=== PATIENT | male | born 1955 | race Caucasian/White ===

== ENCOUNTER 2017-04-14 10:16 | Observation (INO) | payer OTHER ==
[~2017-04-14] VITALS: Ht 180.3 cm; Wt 96.0 kg
[2017-04-14] VITALS (8 sets, daily range): BP systolic 118–150; BP diastolic 78–86; PULSE 48–76; RESP 14–20; TEMP 97.7–98.2; O2SAT 97–100
[2017-04-14] MEDS ORDERED: SODIUM CHLOR 0.9% 1000 ML INJ 1,000 ML IV SCH (11:32)
[2017-04-14] MEDS ORDERED: ASPI-183 PO (11:37)
[2017-04-14] MEDS ORDERED: SIMV40TA PO (11:37)
[2017-04-14] MEDS ORDERED: OMEP40CA2 PO (11:37)
[2017-04-14] MEDS ORDERED: SODIUM CHLORIDE 0.9% FLUSH 10 ML FLUSH IVF PRN (11:45)
[2017-04-14] MEDS ORDERED: FAMOTIDINE 20 MG/2 ML VIAL IV PUSH ONE (11:45)
[2017-04-14] MEDS ORDERED: PANTOPRAZOLE SODIUM 40 MG VIAL IVP ONE (11:45)
[2017-04-14 12:04] LABS: AUTOMATED NEUTROPHIL # 2.6 TH/MM3 (1.8-7.7); BASOPHIL % 0.5 % (0.0-2.0); EOSINOPHIL # 0.3 TH/MM3 (0-0.4); EOSINOPHIL % 5.4 % (0.0-4.0); HEMATOCRIT 28.1 % (39.0-51.0); HEMOGLOBIN 9.2 GM/DL (13.0-17.0); LYMPH % 34.5 % (9.0-44.0); LYMPHOCYTE # 1.8 TH/MM3 (1.0-4.8); MEAN CELL VOLUME 78.8 FL (80.0-100.0); MEAN CORPUSCULAR HEMOGLOBIN 25.7 PG (27.0-34.0); MEAN CORPUSCULAR HGB CONC 32.6 % (32.0-36.0); MEAN PLATELET VOLUME 8.1 FL (7.0-11.0); MONO % 9.6 % (0.0-8.0); MONOCYTE # 0.5 TH/MM3 (0-0.9); PLATELET COUNT 331 TH/MM3 (150-450); RED BLOOD COUNT 3.57 MIL/MM3 (4.50-5.90); RED CELL DISTRIBUTION WIDTH 15.8 % (11.6-17.2); WHITE BLOOD COUNT 5.2 TH/MM3 (4.0-11.0)
--- NOTE | 2017-04-14 12:19 | PD ---
HPI Chief Complaint: Abnormal Results Time Seen by Provider: 11:05 Travel History International Travel<30 days: No Contact w/Intl Traveler<30days: No Traveled to known affect area: No History of Present Illness HPI 61-year-old male with PMH of GERD, HLD presents to the ED for evaluation of abnormal results. Patient states that he had routine lab work drawn at the [place] a few days ago. He states that he was called today and told that his hemoglobin is low. On presentation he endorses feeling more tired than usual. He attributes this to increased work and home chores. He endorses "a few" episodes of "dark" stools in the past few weeks, none today. Denies emmy blood. He denies headache, dizziness, palpitations, chest pain, shortness of breath, dyspnea on exertion, abdominal pain, nausea, vomiting, weakness of the extremities. Endorses familial history of colon cancer in his younger brother, unsure of the age of diagnosis. He endorses previous screening colonoscopy, unsure of the year. Denies history of iron deficiency anemia. Denies history of heavy NSAID use. States that he "hasn't been eating right lately." He is amenable to blood product administration should this be required. PFSH Past Medical History High Cholesterol: Yes Diminished Hearing: No GERD: Yes Respiratory: Yes (BRONCHITIS) Past Surgical History Abdominal Surgery: Yes (LEFT INGUINAL HERNIA REPAIR) Other Surgery: Yes (RIGHT KNEE RECONSTRUCTIVE SX X 3, X 1 LEFT) Social History Alcohol Use: Yes (DAILY-LIQUOR) Tobacco Use: Yes (4-5 CIGS PER DAY) Substance Use: No Allergies-Medications (Allergen,Severity, Reaction): Coded Allergies: No Known Allergies (Unverified , 04/14/17) Reported Meds & Prescriptions Reported Meds & Active Scripts Active Reported Aspirin 325 Mg Tab 325 Mg PO DAILY Simvastatin 40 Mg Tab 40 Mg PO DAILY Omeprazole 40 Mg Cap 40 Mg PO DAILY Review of Systems Except as stated in HPI: all other systems reviewed are Neg Physical Exam Narrative GENERAL: Well-nourished, well-developed white male in no acute distress. SKIN: Focused skin assessment pale, warm/dry. HEAD: Normocephalic. EYES: No scleral icterus. No injection or drainage. NECK: Supple, trachea midline. No JVD or lymphadenopathy. CARDIOVASCULAR: Regular rate and rhythm without murmurs, gallops, or rubs. RESPIRATORY: Breath sounds clear and equal bilaterally. No accessory muscle use. GASTROINTESTINAL: Abdomen soft, non-tender, nondistended. Active bowel sounds. RECTAL EXAM: No masses or tenderness, stool is brown. Guaiac positive. MUSCULOSKELETAL: No cyanosis, or edema. BACK: Nontender without obvious deformity. No CVA tenderness. Data Data Last Documented VS Vital Signs Date Time Temp Pulse Resp B/P (MAP) Pulse Ox O2 Delivery O2 Flow Rate FiO2 04/14/17 13:00 58 20 128/84 (99) 97 Room Air 04/14/17 10:17 98.2 Orders Orders Complete Blood Count With Diff (04/14/17 11:32) Comprehensive Metabolic Panel (04/14/17 11:32) Prothrombin Time / Inr (Pt) (04/14/17 11:32) Act Partial Throm Time (Ptt) (04/14/17 11:32) Urinalysis - C+S If Indicated (04/14/17 11:32) Type And Screen (04/14/17 11:32) Ecg Monitoring (04/14/17 11:32) Iv Access Insert/Monitor (04/14/17 11:32) Oximetry (04/14/17 11:32) Pantoprazole Inj (Protonix Inj) (04/14/17 11:45) Sodium Chlor 0.9% 1000 Ml Inj (Ns 1000 M (04/14/17 11:32) Sodium Chloride 0.9% Flush (Ns Flush) (04/14/17 11:45) Famotidine Inj (Pepcid Inj) (04/14/17 11:45) Consult Gastroenterology (04/14/17 ) Admit Order (Ed Use Only) (04/14/17 14:30) Labs Laboratory Tests Test 04/14/17 11:30 White Blood Count 5.2 TH/MM3 Red Blood Count 3.57 MIL/MM3 Hemoglobin 9.2 GM/DL Hematocrit 28.1 % Mean Corpuscular Volume 78.8 FL Mean Corpuscular Hemoglobin 25.7 PG Mean Corpuscular Hemoglobin Concent 32.6 % Red Cell Distribution Width 15.8 % Platelet Count 331 TH/MM3 Mean Platelet Volume 8.1 FL Neutrophils (%) (Auto) 50.0 % Lymphocytes (%) (Auto) 34.5 % Monocytes (%) (Auto) 9.6 % Eosinophils (%) (Auto) 5.4 % Basophils (%) (Auto) 0.5 % Neutrophils # (Auto) 2.6 TH/MM3 Lymphocytes # (Auto) 1.8 TH/MM3 Monocytes # (Auto) 0.5 TH/MM3 Eosinophils # (Auto) 0.3 TH/MM3 Basophils # (Auto) 0.0 TH/MM3 CBC Comment DIFF FINAL Differential Comment Prothrombin Time 10.6 SEC Prothromb Time International Ratio 1.0 RATIO Activated Partial Thromboplast Time 23.5 SEC Blood Urea Nitrogen 17 MG/DL Creatinine 1.34 MG/DL Random Glucose 86 MG/DL Total Protein 6.4 GM/DL Albumin 3.2 GM/DL Calcium Level 7.7 MG/DL Alkaline Phosphatase 62 U/L Aspartate Amino Transf (AST/SGOT) 32 U/L Alanine Aminotransferase (ALT/SGPT) 24 U/L Total Bilirubin 0.8 MG/DL Sodium Level 142 MEQ/L Potassium Level 4.5 MEQ/L Chloride Level 112 MEQ/L Carbon Dioxide Level 25.4 MEQ/L Anion Gap 5 MEQ/L Estimat Glomerular Filtration Rate 54 ML/MIN [facility] Medical Decision Making Medical Screen Exam Complete: Yes Emergency Medical Condition: Yes Differential Diagnosis GI bleed versus iron deficiency anemia versus electrolyte abnormality versus other Narrative Course 61-year-old male with PMH of GERD, HLD presents to the ED for evaluation of reportedly low hemoglobin from routine lab work at the [place] to a few days ago. On presentation he endorses feeling more tired than usual. He endorses "a few" episodes of "dark" stools in the past few weeks, none today. Denies emmy blood. Endorses familial history of colon cancer in his younger brother, unsure of the age of diagnosis. He endorses previous screening colonoscopy, unsure of the year. Denies history of iron deficiency anemia. States that he "hasn't been eating right lately." Vitals reviewed. Physical exam reveals a pale white male in no acute distress. Chest CTAB. Abdomen soft and nontender. Guaiac positive on rectal exam. IV established. Patient was administered IV famotidine, Protonix and 1 L normal saline. CBC: WBC 5.2. Hemoglobin 9.2. Hematocrit 28.1. MCV 78.8. MCH 25.7. Coags: INR 1.0. CMP: BUN 17 creatinine 1.34. Calcium 7.7. I discussed the results of the workup with the patient as well as recommended admission for GI evaluation. Patient was initially resistant to this plan. He is concerned about insurance costs secondary [facility] Ultimately he agreed to admission. GI consult was placed. I spoke with Dr. Cardenas who agrees to accept the patient to the medicine service. Yumi Del Toro Apr 14, 2017 12:19
[2017-04-14 12:23] LABS: PROTHROMBIN TIME - PATIENT 10.6 SEC (9.8-11.6)
[2017-04-14 13:36] LABS: ALBUMIN 3.2 GM/DL (3.4-5.0); ALKALINE PHOSPHATASE 62 U/L (45-117); ALT (GPT) 24 U/L (12-78); AST (GOT) 32 U/L (15-37); BICARBONATE 25.4 MEQ/L (21.0-32.0); BLOOD UREA NITROGEN 17 MG/DL (7-18); CALCIUM 7.7 MG/DL (8.5-10.1); CHLORIDE 112 MEQ/L (98-107); CREATININE 1.34 MG/DL (0.60-1.30); GLOMERULAR FILTRATION RATE 54 ML/MIN (>89); GLUCOSE,RANDOM 86 MG/DL (74-106); SODIUM (NA) 142 MEQ/L (136-145); TOTAL BILIRUBIN ADULT 0.8 MG/DL (0.2-1.0); TOTAL PROTEIN 6.4 GM/DL (6.4-8.2)
--- NOTE | 2017-04-14 15:29 | HHI.HP ---
[facility] Service [facility] Primary Care Physician [facility] Admission Diagnosis GI bleed Diagnoses: Chief Complaint: Sent for abnormal lab results. Travel History International Travel<30 Days: No Contact w/Intl Traveler <30 Da: No Traveled to Known Affected Are: No History of Present Illness 61-year-old male with a history of GERD, hyperlipidemia sent to the emergency room by the [place] for low hemoglobin. Evaluation in the emergency room revealed a hemoglobin of 9.2 We do not have the [place] records. He is Hemoccult positive in the emergency room. In terms of symptoms, he reports that he has been feeling a little more tired for the past few weeks which she attributed to increased stress and renovation work at his home. 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 He admits that he eats poorly on the road. He admits to having a couple episodes of melena couple of weeks ago. He does drink about 2 ounces of liquor every night with melatonin to help him sleep. He denies abdominal pain or emmy blood in the stool. He takes an aspirin a day and denies any other NSAID use. States his last colonoscopy was over 5 years ago. He does have a brother was diagnosed with colon cancer around 55 years old. Currently denies heart palpitations, shortness of breath, or headache. Review of Systems Constitutional: COMPLAINS OF: Fatigue, DENIES: Fever, Chills Gastrointestinal: COMPLAINS OF: Black stools Except as stated in HPI: all other systems reviewed are Neg Past Family Social History Past Medical History GERD Hyperlipidemia Past Surgical History knee reconstructive surgery Inguinal hernia repair Reported Medications Reported Meds & Active Scripts Active Reported Aspirin 325 Mg Tab 325 Mg PO DAILY Simvastatin 40 Mg Tab 40 Mg PO DAILY Omeprazole 40 Mg Cap 40 Mg PO DAILY Allergies: Coded Allergies: No Known Allergies (Unverified , 04/14/17) Family History Brother diagnosed with colon cancer at 55 years old Father of [place] in his late 60s Social History Patient started smoking 4-5 cigarettes a day last month Admits to drinking 2 ounces of liquor every night. Denies illicit drug use. Physical Exam Vital Signs Vital Signs Date Time Temp Pulse Resp B/P (MAP) Pulse Ox O2 Delivery O2 Flow Rate FiO2 04/14/17 13:00 58 20 128/84 (99) 97 Room Air 04/14/17 12:00 58 14 132/85 (101) 99 Room Air 04/14/17 11:37 61 14 118/78 (91) 100 Room Air 04/14/17 11:35 100 Room Air 04/14/17 10:17 98.2 76 14 135/82 (99) 98 Physical Exam GENERAL: This is a well-nourished, well-developed patient, in no apparent distress. SKIN: No rashes, ecchymoses or lesions. Cool and dry. HEAD: Atraumatic. Normocephalic. No temporal or scalp tenderness. EYES: Pupils equal round and reactive. Extraocular motions intact. No scleral icterus. No injection or drainage. ENT: Nose without bleeding, purulent drainage or septal hematoma. Throat without erythema, tonsillar hypertrophy or exudate. Uvula midline. Airway patent. NECK: Trachea midline. No JVD or lymphadenopathy. Supple, nontender, no meningeal signs. CARDIOVASCULAR: Regular rate and rhythm without murmurs, gallops, or rubs. RESPIRATORY: Clear to auscultation. Breath sounds equal bilaterally. No wheezes , rales, or rhonchi. GASTROINTESTINAL: Abdomen soft, non-tender, nondistended. No hepato-splenomegaly , or palpable masses. No guarding. MUSCULOSKELETAL: Extremities without clubbing, cyanosis, or edema. No joint tenderness, effusion, or edema noted. No calf tenderness. Negative Homans sign bilaterally. NEUROLOGICAL: Awake and alert. Cranial nerves II through XII intact. Motor and sensory grossly within normal limits. Five out of 5 muscle strength in all muscle groups. Normal speech. Laboratory Laboratory Tests Test 04/14/17 11:30 White Blood Count 5.2 Red Blood Count 3.57 Hemoglobin 9.2 Hematocrit 28.1 Mean Corpuscular Volume 78.8 Mean Corpuscular Hemoglobin 25.7 Mean Corpuscular Hemoglobin Concent 32.6 Red Cell Distribution Width 15.8 Platelet Count 331 Mean Platelet Volume 8.1 Neutrophils (%) (Auto) 50.0 Lymphocytes (%) (Auto) 34.5 Monocytes (%) (Auto) 9.6 Eosinophils (%) (Auto) 5.4 Basophils (%) (Auto) 0.5 Neutrophils # (Auto) 2.6 Lymphocytes # (Auto) 1.8 Monocytes # (Auto) 0.5 Eosinophils # (Auto) 0.3 Basophils # (Auto) 0.0 CBC Comment DIFF FINAL Differential Comment Prothrombin Time 10.6 Prothromb Time International Ratio 1.0 Activated Partial Thromboplast Time 23.5 Blood Urea Nitrogen 17 Creatinine 1.34 Random Glucose 86 Total Protein 6.4 Albumin 3.2 Calcium Level 7.7 Alkaline Phosphatase 62 Aspartate Amino Transf (AST/SGOT) 32 Alanine Aminotransferase (ALT/SGPT) 24 Total Bilirubin 0.8 Sodium Level 142 Potassium Level 4.5 Chloride Level 112 Carbon Dioxide Level 25.4 Anion Gap 5 Estimat Glomerular Filtration Rate 54 Result Diagram: 04/14/17 1130 04/14/17 1130 Caprini VTE Risk Assessment Caprini VTE Risk Assessment: No/Low Risk (score <= 1) Caprini Risk Assessment Model Point Value = 1 Point Value = 2 Point Value = 3 Point Value = 5 Age 41-60 Minor surgery BMI > 25 kg/m2 Swollen legs Varicose veins or History of unexplained or recurrent spontaneous Oral contraceptives or hormone replacement Sepsis (< 1 month) Serious lung disease, including pneumonia (< 1 month) Abnormal pulmonary function Acute myocardial infarction Congestive heart failure (< 1 month) History of inflammatory bowel disease Medical patient at bed rest Age 61-74 Arthroscopic surgery Major open surgery (> 45 min) Laparoscopic surgery (> 45 min) Malignancy Confined to bed (> 72 hours) Immobilizing plaster cast Central venous access Age >= 75 History of VTE Family history of VTE Factor V Leiden Prothrombin [id number] Lupus anticoagulant Anticardiolipin antibodies Elevated serum homocysteine Heparin-induced thrombocytopenia Other congenital or acquired thrombophilia Stroke (< 1 month) Elective arthroplasty Hip, pelvis, or leg fracture Acute spinal cord injury (< 1 month) Prophylaxis Regimen Total Risk Factor Score Risk Level Prophylaxis Regimen 0-1 Low Early ambulation 2 Moderate Order ONE of the following: *Sequential Compression Device (SCD) *Heparin 5000 units SQ BID 3-4 Higher Order ONE of the following medications: *Heparin 5000 units SQ TID *Enoxaparin/Lovenox 40 mg SQ daily (WT < 150 kg, CrCl > 30 mL/min) *Enoxaparin/Lovenox 30 mg SQ daily (WT < 150 kg, CrCl > 10-29 mL/min) *Enoxaparin/Lovenox 30 mg SQ BID (WT < 150 kg, CrCl > 30 mL/min) AND/OR *Sequential Compression Device (SCD) 5 or more Highest Order ONE of the following medications: *Heparin 5000 units SQ TID (Preferred with Epidurals) *Enoxaparin/Lovenox 40 mg SQ daily (WT < 150 kg, CrCl > 30 mL/min) *Enoxaparin/Lovenox 30 mg SQ daily (WT < 150 kg, CrCl > 10-29 mL/min) *Enoxaparin/Lovenox 30 mg SQ BID (WT < 150 kg, CrCl > 30 mL/min) AND *Sequential Compression Device (SCD) Assessment and Plan Problem List: (1) GI bleeding ICD Code: K92.2 - Gastrointestinal hemorrhage, unspecified Plan: Last colonoscopy over 5 years ago. He has a brother with history of colon cancer in his 50s. He does drink alcohol which put him at risk for peptic ulcer disease Discussed with GI. 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 Recheck H&H later this afternoon and in the morning. Transfuse as needed. (3) GERD (gastroesophageal reflux disease) ICD Code: K21.9 - Gastro-esophageal reflux disease without esophagitis Plan: Continue Protonix as above (4) Hyperlipidemia ICD Code: E78.5 - Hyperlipidemia, unspecified Plan: Continue statin Discussed Condition With ER provider, RN, Adele Turner MD Apr 14, 2017 15:29
[2017-04-14] MEDS ORDERED: BISACODYL 10 MG SUPP RECTAL PRN (15:30)
[2017-04-14] MEDS ORDERED: NALOXONE HCL 0.4 MG/ML AMP IV PUSH PRN (15:30)
[2017-04-14] MEDS ORDERED: SODIUM CHLORIDE 0.9% FLUSH 10 ML FLUSH IV FLUSH PRN (15:30)
[2017-04-14] MEDS ORDERED: ONDANSETRON HCL 4 MG/2 ML VIAL IVP PRN (15:30)
[2017-04-14] MEDS ORDERED: LACTULOSE SYRUP 20 GM/30 ML CUP PO PRN (15:30)
[2017-04-14] MEDS ORDERED: MAGNESIUM HYDROXIDE SUSP 30 ML CUP PO PRN (15:30)
[2017-04-14] MEDS ORDERED: ACETAMINOPHEN 325 MG TAB PO PRN (15:30)
[2017-04-14] MEDS ORDERED: SENNOSIDES 8.6 MG TAB PO PRN (15:30)
--- NOTE | 2017-04-14 15:49 | PD.CONS ---
HPI History of Present Illness This is a 61 year old male who presented to the ER for abnormal labwork. [facility] advised him to come for low hgb. HE admits some fatigue in the last few days but attributed it to his long work hours. He noticed in the last few weeks he has had some "dark" stools. Denies emmy blood in stool, n/v, abd pain , weight loss. Last colonoscopy at [place] 5-10 y ago, no abnormal findings per pt. HE thinks he has had an EGD for acid reflux maybe 20 y. TAkes ASA every day and in the last month has been taking Aleve daily for knee pain. He drinks 2 shots daily. (Marisabel Munoz) PFSH Past Medical History acid reflux HLD Past Surgical History knee surgeries (Marisabel Munoz) Coded Allergies: No Known Allergies (Unverified , 04/14/17) Family History colon ca - brother [place] father Social History 2 shots etoh daily started smoking 4 - 5 cigarettes daily, just started this February denies illicit drug use (Marisabel Munoz) Review of Systems Constitutional: DENIES: Fever, Weight loss Endocrine: DENIES: Polydipsia Eyes: DENIES: Blurred vision Ears, nose, mouth, throat: DENIES: Hearing loss Respiratory: DENIES: Cough Cardiovascular: DENIES: Chest pain Gastrointestinal: COMPLAINS OF: Black stools, DENIES: Abdominal pain, Bloody stools, Diarrhea, Nausea, Vomiting, Hematemesis Genitourinary: DENIES: Hematuria Musculoskeletal: COMPLAINS OF: Joint pain, DENIES: Muscle aches Integumentary: DENIES: Abnormal pigmentation Hematologic/lymphatic: DENIES: Bruising Immunologic/allergic: DENIES: Eczema Neurologic: DENIES: Abnormal gait Psychiatric: DENIES: Confusion (Marisabel Munoz) GI Exam Vitals I&O Vital Signs Date Time Temp Pulse Resp B/P (MAP) Pulse Ox O2 Delivery O2 Flow Rate FiO2 04/14/17 13:00 58 20 128/84 (99) 97 Room Air 04/14/17 12:00 58 14 132/85 (101) 99 Room Air 04/14/17 11:37 61 14 118/78 (91) 100 Room Air 04/14/17 11:35 100 Room Air 04/14/17 10:17 98.2 76 14 135/82 (99) 98 I/O 04/13/17 04/13/17 04/13/17 04/14/17 04/14/17 04/14/17 07:00 15:00 23:00 07:00 15:00 23:00 Intake Total 1000 ml Balance 1000 ml Intake IV Total 1000 ml Laboratory Test 04/14/17 11:30 White Blood Count 5.2 TH/MM3 Red Blood Count 3.57 MIL/MM3 Hemoglobin 9.2 GM/DL Hematocrit 28.1 % Mean Corpuscular Volume 78.8 FL Mean Corpuscular Hemoglobin 25.7 PG Mean Corpuscular Hemoglobin Concent 32.6 % Red Cell Distribution Width 15.8 % Platelet Count 331 TH/MM3 Mean Platelet Volume 8.1 FL Neutrophils (%) (Auto) 50.0 % Lymphocytes (%) (Auto) 34.5 % Monocytes (%) (Auto) 9.6 % Eosinophils (%) (Auto) 5.4 % Basophils (%) (Auto) 0.5 % Neutrophils # (Auto) 2.6 TH/MM3 Lymphocytes # (Auto) 1.8 TH/MM3 Monocytes # (Auto) 0.5 TH/MM3 Eosinophils # (Auto) 0.3 TH/MM3 Basophils # (Auto) 0.0 TH/MM3 CBC Comment DIFF FINAL Differential Comment Prothrombin Time 10.6 SEC Prothromb Time International Ratio 1.0 RATIO Activated Partial Thromboplast Time 23.5 SEC Blood Urea Nitrogen 17 MG/DL Creatinine 1.34 MG/DL Random Glucose 86 MG/DL Total Protein 6.4 GM/DL Albumin 3.2 GM/DL Calcium Level 7.7 MG/DL Alkaline Phosphatase 62 U/L Aspartate Amino Transf (AST/SGOT) 32 U/L Alanine Aminotransferase (ALT/SGPT) 24 U/L Total Bilirubin 0.8 MG/DL Sodium Level 142 MEQ/L Potassium Level 4.5 MEQ/L Chloride Level 112 MEQ/L Carbon Dioxide Level 25.4 MEQ/L Anion Gap 5 MEQ/L Estimat Glomerular Filtration Rate 54 ML/MIN Physical Examination HEENT: PERRL; normocephalic; atraumatic; no jaundice. CHEST: CTA CARDIAC: RRR ABDOMEN: Soft, nondistended, nontender; no hepatosplenomegaly; bowel sounds are present in all four quadrants. EXTREMITIES: No clubbing, cyanosis, or edema. SKIN: Normal; no rash; no jaundice. APPLICATION PACKAGER: No focal deficits; alert and oriented times three. (Marisabel Munoz) Assessment and Plan Plan ASSESSMENT - anemia, questionable melena - hgb 9.2 microcytic. has noticed dark stools in past few weeks. no other GI sx. no emmy bleeding. last colonsocopy 5-10 y ago at [place], no abnormal findings. last EGD 20y ago. PLAN - EGD and colonoscopy - clears - NPO after midnight - obtain consent - golytely - monitor HH - further recs to follow pt seen by myself and Dr Poole and this note is on his behalf (Marisabel Munoz) Physician Comments Seen and examined with SHOBHA, no active bleeding but progressive decline in H/H. +ve Nsaids, and ETOH. Egd/colonoscopy planned for tomorrow. Discussed with Dr. Spivey. Thank you (Silvano Mayes MD) Marisabel Munoz Apr 14, 2017 15:49 Silvano Mayes MD Apr 14, 2017 16:19
[2017-04-14] MEDS ORDERED: PEG (High)/E-LYTE SOLN 4000 ML BTL PO ONE (16:00)
[2017-04-14] MEDS: SODIUM CHLOR 0.45% 1000 ML INJ 1,000 ML IV SCH (18:11)
[2017-04-14] MEDS: SODIUM CHLORIDE 0.9% FLUSH 10 ML FLUSH IV FLUSH SCH (19:52)
[2017-04-14 20:12] LABS: HEMATOCRIT 28.7 % (39.0-51.0); HEMOGLOBIN 9.3 GM/DL (13.0-17.0)
[2017-04-15 00:23] VITALS: BP 127/81; PULSE 63; RESP 16; TEMP 98; O2SAT 98
[2017-04-15 03:59] VITALS: BP 124/78; PULSE 65; RESP 14; TEMP 96.8; O2SAT 97
[2017-04-15] MEDS ORDERED: CHLORHEXIDINE GLUCONATE 2 % 1 PACK (2 CLOTHS) TOPICAL PRN (06:15)
[2017-04-15] MEDS ORDERED: METOPROLOL TARTRATE 25 MG TAB PO PRN (06:15)
[2017-04-15] MEDS ORDERED: SODIUM CHLORID 0.9% 500 ML IV PRN (06:15)
[2017-04-15] MEDS ORDERED: LACTATED RINGER'S 1000 ML IV PRN (06:15)
[2017-04-15] MEDS ORDERED: POVIDONE IODINE 5% (ANTISEPSIS KIT) 4 APPLICATIONS EACH NARE PRN (06:15)
[2017-04-15] MEDS ORDERED: INSULIN HUMAN REGULAR 1,000 UNITS/10 ML VIAL SQ PRN (06:15)
[2017-04-15 07:11] LABS: AUTOMATED NEUTROPHIL # 2.2 TH/MM3 (1.8-7.7); BASOPHIL % 0.6 % (0.0-2.0); EOSINOPHIL # 0.3 TH/MM3 (0-0.4); HEMATOCRIT 28.3 % (39.0-51.0); HEMOGLOBIN 9.2 GM/DL (13.0-17.0); LYMPH % 41.2 % (9.0-44.0); LYMPHOCYTE # 2.1 TH/MM3 (1.0-4.8); MEAN CELL VOLUME 77.1 FL (80.0-100.0); MEAN CORPUSCULAR HEMOGLOBIN 25.1 PG (27.0-34.0); MEAN CORPUSCULAR HGB CONC 32.6 % (32.0-36.0); MEAN PLATELET VOLUME 7.9 FL (7.0-11.0); MONO % 10.1 % (0.0-8.0); MONOCYTE # 0.5 TH/MM3 (0-0.9); NEUT % 43.1 % (16.0-70.0); PLATELET COUNT 301 TH/MM3 (150-450); RED BLOOD COUNT 3.67 MIL/MM3 (4.50-5.90); RED CELL DISTRIBUTION WIDTH 15.9 % (11.6-17.2); WHITE BLOOD COUNT 5.1 TH/MM3 (4.0-11.0)
[2017-04-15 07:25] VITALS: BP 112/73; PULSE 57; RESP 18; TEMP 98; O2SAT 93
[2017-04-15] MEDS: SODIUM CHLORIDE 0.9% FLUSH 10 ML FLUSH IV FLUSH SCH (08:03)
[2017-04-15] MEDS: SODIUM CHLOR 0.45% 1000 ML INJ 1,000 ML IV SCH (08:04)
--- NOTE | 2017-04-15 08:28 | HHI.PR ---
Subjective Remarks Follow-up GI bleed. The patient has no complaints at this time. He is going for EGD/colonoscopy now. Denies chest pain, dyspnea, lightheadedness, dizziness. He denies any active bleeding. Objective Vitals Vital Signs Date Time Temp Pulse Resp B/P (MAP) Pulse Ox O2 Delivery O2 Flow Rate FiO2 04/15/17 07:25 98.0 57 18 112/73 (86) 93 04/15/17 03:59 96.8 65 14 124/78 (93) 97 04/15/17 00:23 98.0 63 16 127/81 (96) 98 04/14/17 19:13 98.0 48 16 150/85 (106) 98 04/14/17 16:32 97.7 54 18 119/78 (92) 100 04/14/17 16:18 04/14/17 14:00 58 18 129/86 (100) 100 Room Air 04/14/17 13:00 58 20 128/84 (99) 97 Room Air 04/14/17 12:00 58 14 132/85 (101) 99 Room Air 04/14/17 11:37 61 14 118/78 (91) 100 Room Air 04/14/17 11:35 100 Room Air 04/14/17 10:17 98.2 76 14 135/82 (99) 98 I/O 04/14/17 04/14/17 04/14/17 04/15/17 04/15/17 04/15/17 07:00 15:00 23:00 07:00 15:00 23:00 Intake Total 1000 ml 4000 ml Balance 1000 ml 4000 ml Intake Oral 4000 ml IV Total 1000 ml Result Diagram: 04/15/17 0600 04/14/17 1130 Objective Remarks General: No acute distress. Ambulating in his room. Heart: Regular rate and rhythm. No murmur. Lungs: Clear to auscultation bilaterally. No wheezes, rales, or rhonchi. Breathing is nonlabored. Abdomen: Soft, nontender, nondistended. Extremities: No lower extremity edema. Psych: Alert and oriented. 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 GI bleed: Appreciate gastroenterology recommendations. Scheduled for EGD/ colonoscopy this morning. H&H remaining stable. Continue PPI. 2. Anemia secondary to acute blood loss: Monitor H&H. Hemoglobin remained stable overnight. Transfuse if necessary. 3. GERD: Continue Protonix. 4. Hyperlipidemia: Continue statin. 5. Tobacco abuse, alcohol abuse: Patient has been counseled. 6. DVT prophylaxis: Avoid chemical prophylaxis secondary to GI bleed. Ambulation. Discharge Planning Possible discharge home later today if cleared by GI. Augie Esparza MD Apr 15, 2017 08:28
[2017-04-15] MEDS ORDERED: PANTOPRAZOLE SOD 40 MG DELAYED RELEASE TAB PO SCH (09:00)
[2017-04-15] MEDS ORDERED: PRAVASTATIN SOD 80 MG TAB PO SCH (09:00)
--- NOTE | 2017-04-15 09:36 | GIPROC ---
[facility] [address] [facility]. [facility], [address] EGD PROCEDURE REPORT EXAM DATE: 04/15/2017 PATIENT NAME: Gama Capellan MR #: [id number] BIRTHDATE: 1955 ATTENDING: Silvano Mayes MD ORDER #: [id number] STONEWORKING SANDER: Tatianna Zimmerman and Jason Gonzalez STATUS: inpatient INDICATIONS: The patient is a 61 yr old male here for an EGD due to iron deficiency anemia PROCEDURE PERFORMED: EGD w/ biopsy MEDICATIONS: None and Per Anesthesia. TOPICAL ANESTHETIC: CONSENT: The patient understands the risks and benefits of the procedure and understands that these risks include, but are not limited to: sedation, allergic reaction, infection, perforation and/or bleeding. Alternative means of evaluation and treatment include, among others: physical exam, x-rays, and/or surgical intervention. The patient elects to proceed with this endoscopic procedure. medical equipment was checked for proper function. Hand hygiene and appropriate measures for infection prevention was taken. After the risks, benefits and alternatives of the procedure were thoroughly explained, Informed consent was verified, confirmed and timeout was successfully executed by the treatment team. The patient was anesthetized with topical anesthesia and the [id number] (Pedi C) endoscope was introduced through the mouth and advanced to the second portion of the duodenum. Retroflexed views revealed a hiatal hernia The gastroscope was then slowly withdrawn and removed. ESOPHAGUS: There was LA Class B esophagitis noted. A biopsy was performed using cold forceps. Sample sent for histology. STOMACH: There was erythematous moderate gastritis in the gastric antrum. A biopsy was performed using cold forceps. Sample sent for histology. DUODENUM: The duodenal mucosa appeared normal in the bulb and second portion of the duodenum. ADVERSE EVENTS: There were no complications. IMPRESSIONS: 1. There was LA Class B esophagitis noted; biopsy was performed 2. There was erythematous gastritis in the gastric antrum; biopsy was performed 3. Normal duodenal mucosa in the bulb and second portion of the duodenum 4. Retroflexed views revealed a hiatal hernia RECOMMENDATIONS: 1. Await biopsy results. Biopsy results will not be ready for 7-10 days. If you don't hear from us in two weeks, call our office for biopsy results. 2. Anti-reflux regimen 3. Continue PPI PATIENT CONDITION: stable DISPOSITION: Inpatient REPEAT EXAM: Return 1 year EGD pending biopsy results Silvano Mayes MD eSigned: Silvano Mayes MD 04/15/2017 9:36 AM cc: PATIENT NAME: Gama Capellan MR#: [id number]
--- NOTE | 2017-04-15 09:41 | GIPROC ---
[facility] [address] [facility]. [facility], [address] COLONOSCOPY PROCEDURE REPORT EXAM DATE: 04/15/2017 PATIENT NAME: Gama Capellan MR #: [id number] BIRTHDATE: 1955 ENDOSCOPIST: Silvano Mayes MD ORDER #: [id number] PIGMENT WEIGHER: Tatianna Zimmerman and Jason Gonzalez STATUS: inpatient INDICATIONS: The patient is a 61 yr old male here for a colonoscopy due to iron deficiency anemia PROCEDURE PERFORMED: Colonoscopy with biopsy MEDICATIONS: None and Per Anesthesia. PREP QUALITY: The [place] Bowel Prep Score was Right colon 3, Mid colon 3, and Left colon 2. Total = 8. PREP TYPE:GoLytely ESTIMATED BLOOD LOSS: None CONSENT: The patient understands the risks and benefits of the procedure and understands that these risks include, but are not limited to: sedation, allergic reaction, infection, perforation and/or bleeding. Alternative means of evaluation and treatment include, among others: physical exam, x-rays, and/or surgical intervention. The patient elects to proceed with this endoscopic procedure. medical equipment was checked for proper function. Hand hygiene and appropriate measures for infection prevention was taken. After the risks, benefits and alternatives of the procedure were thoroughly explained, Informed consent was verified, confirmed and timeout was successfully executed by the treatment team. A digital exam revealed internal hemorrhoids The Pentax EC-[id number] endoscope was introduced through the anus and advanced to the cecum, which was identified by both the appendix and ileocecal valve. The instrument was then slowly withdrawn as the colon was fully examined. COLON FINDINGS: Moderate diverticulosis was noted in the sigmoid colon. No bleeding was noted from the diverticulosis. A polypoid shaped sessile polyp ranging between 3-5mm in size was found in the sigmoid colon. A biopsy was performed using cold forceps. Retroflexed views revealed internal hemorrhoids and Retroflexed views revealed medium internal hemorrhoids The scope was then completely withdrawn from the patient and the procedure terminated. PROCEDURE WITHDRAWAL TIME:6minutes ADVERSE EVENTS: There were no complications. IMPRESSIONS: 1. Moderate diverticulosis was noted in the sigmoid colon 2. A sessile polyp ranging between 3-5mm in size was found in the sigmoid colon; biopsy was performed using cold forceps 3. Retroflexed views revealed internal hemorrhoids 4. Retroflexed views revealed medium internal hemorrhoids 5. Revealed internal hemorrhoids RECOMMENDATIONS: 1. Await biopsy results. Biopsy results will not be ready for 7-10 days. If you don't hear from us in two weeks, call our office for results. 2. Benefiber 2 tsp daily 3. Continue surveillance 4. Yearly hemoccult 5. High fiber diet 6. No seeds, nuts and popcorn in diet 7. Xray for Small bowel follow through RECALL: Return 5 years Colonoscopy Silvano Mayes MD eSigned: Silvano Mayes MD 04/15/2017 9:40 AM cc: PATIENT NAME: Gama Capellan MR#: [id number]
[2017-04-15] MEDS ORDERED: PHENYLEPH/NS 1000 MCG/10 ML SYR IV ONE (12:00)
[2017-04-15] MEDS ORDERED: PROPOFOL 200 MG/20 ML AMP IV ONE (12:00)
[2017-04-15] MEDS ORDERED: MAGNESIUM CITRATE SOLN 300 ML BTL PO ONE ×2 (12:00→18:00)
[2017-04-15] MEDS ORDERED: LIDOCAINE HCL 1% PF 5 ML SYRINGE OTHER ONE (12:00)
[2017-04-15 12:27] VITALS: BP 137/92; PULSE 64; RESP 18; TEMP 97.3; O2SAT 97
--- NOTE | 2017-04-15 13:20 | RADRPT ---
EXAM DATE/TIME: 04/15/2017 10:45 [place] COMPARISON: No previous studies available for comparison. INDICATIONS : Anemia FLUORO TIME: 13 minutes IMAGE COUNT: CONTRAST: Entero Vu 24% Barium Sulfate (24% w/v, 20% w/w) IMAGING TIME(S): 15 min, 30 min, 45 min, 1 hr MEDICAL HISTORY : None. SURGICAL HISTORY : None. ENCOUNTER: Initial ACUITY: 1 day PAIN SCORE: 0/10 LOCATION: Bilateral abdomen FINDINGS: Preliminary film is unremarkable. The stomach is partially intrathoracic and partially intra-abdominal.. Examination of the small bowel demonstrates normal mucosal pattern involving the jejunum and ileum. There is no evidence of mass or obstruction. No intraluminal filling defects are identified. Contra st is seen in the colon by 2 hours. CONCLUSION: Unremarkable small bowel examination. Hiatus hernia containing the fundus of the stomach. Salomón Kessler MD on April 15, 2017 at 13:18 Board Certified Radiologist. This report was verified electronically.
[2017-04-15] MEDS: BISACODYL EC 5 MG TABEC PO SCH ×2 (13:28→15:08)
[2017-04-15] MEDS ORDERED: ASPI81TA23 PO (15:08)
--- NOTE | 2017-04-15 15:09 | HHI.DCPOC ---
Discharge Care Plan Diagnosis: (1) Anemia due to blood loss (2) GERD (gastroesophageal reflux disease) (3) Hyperlipidemia (4) GI bleeding Goals to Promote Your Health * To prevent worsening of your condition and complications * To maintain your health at the optimal level Directions to Meet Your Goals Take your medications as prescribed Follow your dietary instruction Follow activity as directed Keep your appointments as scheduled Take your immunizations and boosters as scheduled If your symptoms worsen call your PCP, if no PCP go to Urgent Care Center or Emergency Room Smoking is Dangerous to Your Health. Avoid second hand smoke Call the 24-hour hour crisis hotline for domestic abuse at Augie Esparza MD Apr 15, 2017 15:09
--- NOTE | 2017-04-15 19:43 | EKG ---
Date Performed: 04/15/2017 Time Performed: 06:23:00 PTAGE: 61 years EKG: SINUS BRADYCARDIA BORDERLINE ECG NO PREVIOUS TRACING DOCTOR: Shana Nolasco Interpretating Date/Time 04/15/2017 19:41:01
== END 2017-04-15 16:25 | disposition home or self-care (01) ==
LOC: NEPC 10:16 → NEDA 14:32 → NEPGCP 16:27
PROVIDERS: ADMIT Family Medicine; ATTEND Family Medicine
DX: K92.2 Gastrointestinal hemorrhage, unspecified (principal); D50.0 Iron deficiency anemia secondary to blood loss (chronic); D62 Acute posthemorrhagic anemia; K63.5 Polyp of colon; K57.30 Diverticulosis of large intestine without perforation or abscess without bleeding; K64.8 Other hemorrhoids; K21.9 Gastro-esophageal reflux disease without esophagitis; E78.00 Pure hypercholesterolemia, unspecified; R00.1 Bradycardia, unspecified; K44.9 Diaphragmatic hernia without obstruction or gangrene; F10.10 Alcohol abuse, uncomplicated; F17.210 Nicotine dependence, cigarettes, uncomplicated; Z79.899 Other long term (current) drug therapy; Z79.82 Long term (current) use of aspirin; Z80.0 Family history of malignant neoplasm of digestive organs
CPT/HCPCS: 00813; 43239; 45380; 74250; 80053; 85014; 85018; 85025; 85610; 85730; 86850; 86900; 86901; 88305; 93005; 96361; 96374; 96375; 99285; C9113; G0378; J2370; J7030; 88312